=== PATIENT | male | born 1985 | race Caucasian/White ===

== ENCOUNTER 2016-07-26 19:59 | Emergency (ER) | payer MEDICAID ==
[~2016-07-26] VITALS: Ht 180.3 cm; Wt 63.5 kg
[~2016-07-26 19:59] MED LIST: BACT800T5 PO; CEPH500C3 PO; CHLO.12%30 SWISH-SPIT; LACT PO
[2016-07-26 20:00] VITALS: BP 126/74; PULSE 68; RESP 18; TEMP 97.8; O2SAT 99
[2016-07-26] MEDS ORDERED: PENI250T59 PO (20:17)
--- NOTE | 2016-07-26 20:40 | PD ---
HPI Chief Complaint: Oral / Dental Pain or Problem Time Seen by Provider: 20:37 Travel History International Travel<30 days: No Contact w/Intl Traveler<30days: No Traveled to known affect area: No History of Present Illness HPI 31-year-old white male presents to emergency Department with complaints of dental pain. He states that he is had pain and swelling of the left lower jaw now for the past week. He states that he's been taking leftover penicillin that he had from prior dental infection and ibuprofen without relief. He states the pain is becoming more severe. It radiates to his right ear. He has difficulty opening closing his jaw. He denies any fever or chills. No nausea vomiting. No abdominal pain or urinary symptoms. PFSH Past Medical History Narrative Medical Asthma, dental cavities Asthma: Yes (child) Diminished Hearing: No Tetanus Vaccination: < 5 Years Past Surgical History Oral Surgery: Yes (4 dental implants) Social History Alcohol Use: Yes Tobacco Use: Yes (04/15-2PPD) Substance Use: No Allergies-Medications (Allergen,Severity, Reaction): Coded Allergies: No Known Allergies (Unverified , 07/26/16) Reported Meds & Prescriptions Reported Meds & Active Scripts Active Reported Penicillin Vk (Penicillin V Potassium) 250 Mg Tab 500 Mg PO Q6H Review of Systems Except as stated in HPI: all other systems reviewed are Neg Physical Exam Narrative GENERAL: Well-developed, well-nourished in no acute distress. Nontoxic appearing. HEAD: Normocephalic, atraumatic. EYES: Pupils equal round and reactive. Extraocular motions intact. No scleral icterus. No injection or drainage. ENT: TMs clear without erythema. The external auditory canals clear. Nose: clear . Posterior pharynx is pink and moist. No tonsillar edema or exudate. Uvula midline. Airway patent. The patient has diffuse periodontal disease. He has multiple dental cavities. He points to his left lower mandible as a source of his pain. His lower last 2 molars are decayed to the gumline. There is gingival edema and erythema. NECK: Trachea midline.Supple, nontender, moves head freely. No central bony tenderness or spasm. CARDIOVASCULAR: Regular rate and rhythm without murmurs, gallops, or rubs. RESPIRATORY: Clear to auscultation. Breath sounds equal bilaterally. No wheezes , rales, or rhonchi. GASTROINTESTINAL: Abdomen soft, non-tender, nondistended. No hepato-splenomegaly , or palpable masses. No guarding. EXTREMITIES: No clubbing, cyanosis, or edema. No joint tenderness, effusion, or edema noted. BACK: Nontender without deformity or crepitance. No flank tenderness. Data Data Last Documented VS Vital Signs Date Time Temp Pulse Resp B/P Pulse Ox O2 Delivery O2 Flow Rate FiO2 07/26/16 20:00 97.8 68 18 126/74 99 Room Air MDM Medical Decision Making Medical Screen Exam Complete: Yes Emergency Medical Condition: Yes Medical Record Reviewed: Yes Differential Diagnosis MDM: Moderate Differential diagnoses: Dental abscess, dental caries, osteitis, cellulitis Narrative Course This is dental caries, dental abscess Patient given clindamycin 600 milligrams by mouth, Lortab 5 mg by mouth. Diagnosis Primary Impression: Dental abscess Additional Impression: Dental caries Patient Instructions: Narcotic given in the ED, General Instructions Additional Instructions: Rest. Saltwater gargles. [place] oil on cotton balls. 3 Advil every 6 hours. Clindamycin and Ultram. follow-up with a dentist as soon as possible. And return to the ER if any problems. Med/Other Pt SpecificInfo: Prescription(s) given Disposition: 01 DISCHARGE HOME Condition: Stable Sanjeev Agarwal Jul 26, 2016 20:40
[2016-07-26] MEDS ORDERED: CLIN150 PO (20:42)
[2016-07-26] MEDS ORDERED: ULTR50TA5 PO (20:42)
[2016-07-26] MEDS ORDERED: ACETAMINOPHEN/HYDROcodone 325 MG/5 MG TAB PO ONE (20:45)
[2016-07-26] MEDS ORDERED: CLINDAMYCIN 150 MG CAP PO ONE (20:45)
== END 2016-07-26 20:53 | disposition home or self-care (01) ==
LOC: NEPB 19:59
DX: K04.7 Periapical abscess without sinus (principal); K02.9 Dental caries, unspecified; F17.200 Nicotine dependence, unspecified, uncomplicated
CPT/HCPCS: 99282

== ENCOUNTER 2016-11-16 09:39 | Emergency (ER) | payer MEDICAID ==
[~2016-11-16] VITALS: Ht 182.9 cm; Wt 62.0 kg
[~2016-11-16 09:39] MED LIST changes: -BACT800T5 PO; -CEPH500C3 PO; -CHLO.12%30 SWISH-SPIT; +CLIN150 PO; -LACT PO; +PENI250T59 PO; +ULTR50TA5 PO
[2016-11-16 09:41] VITALS: BP 133/86; PULSE 68; RESP 15; TEMP 97.9; O2SAT 100
[2016-11-16] MEDS ORDERED: LIDOCAINE VISCOUS 2% SOLN 15 ML UDC SWISH-SWAL ONE (10:00)
[2016-11-16] MEDS ORDERED: ALUMINUM/MAGNESIUM/SIMETH 30 ML CUP PO ONE (10:00)
[2016-11-16] MEDS ORDERED: SODIUM CHLORIDE 0.9% FLUSH 10 ML FLUSH IVF PRN (10:00)
[2016-11-16 10:13] VITALS: O2SAT 98
--- NOTE | 2016-11-16 10:15 | PD ---
HPI Chief Complaint: Cardiac Complaint Time Seen by Provider: 09:48 Travel History International Travel<30 days: No Contact w/Intl Traveler<30days: No Traveled to known affect area: No History of Present Illness HPI This is a 31-year-old male who presents to the emergency department with chest discomfort in the mid sternal area, nonradiating, initially associated with severe palpitations, sweating and shortness of breath that woke him up from sleep in the middle the night. He says he has never had symptoms like this before. His symptoms have been constant but improving some throughout the morning. He does take ibuprofen for chronic back pain. He denies any history of hypertension, hyperlipidemia, or diabetes. He does smoke and he drinks alcohol occasionally. He doesn't use any drugs. He has no family history of heart disease. PFSH Past Medical History Asthma: Yes (child) Diminished Hearing: No Influenza Vaccination: No Past Surgical History Oral Surgery: Yes (4 dental implants) Social History Alcohol Use: Yes ("seldom") Tobacco Use: Yes (04/15-2PPD) Substance Use: No Allergies-Medications (Allergen,Severity, Reaction): Coded Allergies: No Known Allergies (Unverified , 11/16/16) Reported Meds & Prescriptions Reported Meds & Active Scripts Active No Active Prescriptions or Reported Medications Review of Systems Except as stated in HPI: all other systems reviewed are Neg Physical Exam Narrative GENERAL:Well appearing, no acute distress SKIN: Focused skin assessment warm and dry. HEAD: Atraumatic. Normocephalic. EYES: Pupils equal and round. No injection or drainage. ENT: Moist mucous membranes NECK: Trachea midline. CARDIOVASCULAR: Regular rate and rhythm. No murmur appreciated. RESPIRATORY: Clear to auscultation. Breath sounds equal bilaterally. GASTROINTESTINAL: Abdomen soft, non-tender, nondistended. MUSCULOSKELETAL: No obvious deformities. NEUROLOGICAL: Awake and alert. No obvious cranial nerve deficits. Moving all extremities. PSYCHIATRIC: Appropriate mood and affect; insight and judgment normal. Data Data Last Documented VS Vital Signs Date Time Temp Pulse Resp B/P Pulse Ox O2 Delivery O2 Flow Rate FiO2 11/16/16 10:13 98 Room Air 11/16/16 09:41 97.9 68 15 133/86 Orders Electrocardiogram (11/16/16 09:54) Complete Blood Count With Diff (11/16/16 09:54) Comprehensive Metabolic Panel (11/16/16 09:54) Troponin I (11/16/16 09:54) Lipase (11/16/16 09:54) Chest, Single Ap (11/16/16 09:54) Ecg Monitoring (11/16/16 09:54) Bilateral Bp Monitoring (11/16/16 09:54) Iv Access Insert/Monitor (11/16/16 09:54) Oximetry (11/16/16 09:54) Oxygen Administration (11/16/16 09:54) Sodium Chloride 0.9% Flush (Ns Flush) (11/16/16 10:00) Al-Mag Hy-Si 40-40-4 Mg/Ml Liq (Mag-Al P (11/16/16 10:00) Lidocaine 2% Viscous (Xylocaine 2% Visco (11/16/16 10:00) Labs Laboratory Tests Test 11/16/16 10:02 White Blood Count 8.1 TH/MM3 Red Blood Count 4.81 MIL/MM3 Hemoglobin 14.7 GM/DL Hematocrit 43.1 % Mean Corpuscular Volume 89.6 FL Mean Corpuscular Hemoglobin 30.5 PG Mean Corpuscular Hemoglobin 34.0 % Concent Red Cell Distribution Width 13.6 % Platelet Count 132 TH/MM3 Mean Platelet Volume 10.1 FL Neutrophils (%) (Auto) 66.2 % Lymphocytes (%) (Auto) 26.7 % Monocytes (%) (Auto) 5.5 % Eosinophils (%) (Auto) 0.9 % Basophils (%) (Auto) 0.7 % Neutrophils # (Auto) 5.4 TH/MM3 Lymphocytes # (Auto) 2.2 TH/MM3 Monocytes # (Auto) 0.4 TH/MM3 Eosinophils # (Auto) 0.1 TH/MM3 Basophils # (Auto) 0.1 TH/MM3 CBC Comment DIFF FINAL Differential Comment Sodium Level 137 MEQ/L Potassium Level 3.7 MEQ/L Chloride Level 106 MEQ/L Carbon Dioxide Level 22.9 MEQ/L Anion Gap 8 MEQ/L Blood Urea Nitrogen 11 MG/DL Creatinine 0.96 MG/DL Estimat Glomerular Filtration 92 ML/MIN Rate Random Glucose 187 MG/DL Calcium Level 8.3 MG/DL Total Bilirubin 0.8 MG/DL Aspartate Amino Transf 22 U/L (AST/SGOT) Alanine Aminotransferase 21 U/L (ALT/SGPT) Alkaline Phosphatase 71 U/L Troponin I LESS THAN 0.02 NG/ML Total Protein 7.1 GM/DL Albumin 3.9 GM/DL Lipase 538 U/L MDM Medical Decision Making Medical Screen Exam Complete: Yes Emergency Medical Condition: Yes Interpretation(s) Afebrile, no tachycardia, normotensive No leukocytosis Troponin is normal Lipase is 538 EKG: Normal sinus rhythm, incomplete right bundle-branch block, pronounced T waves in V3 and V4 Last 24 hours Impressions Chest X-Ray 11/16/16 0920 Signed Impressions: Service Date/Time: Wednesday, November 16, 2016 09:56 - CONCLUSION: No acute disease. Juma Wilkinson MD FACR Differential Diagnosis Acute coronary syndrome, aortic dissection, gastritis, peptic ulcer disease, pancreatitis, arrhythmia Narrative Course This is a 31-year-old male who presents to the emergency department with chest discomfort that started this morning waking him from sleep associated with some shortness of breath. He says he woke up around 2 AM with the pain. He is tender in his epigastrium suggestive of gastritis or peptic ulcer disease. Labs were obtained which demonstrate a lipase in the 500s which doesn't meet criteria for pancreatitis but does support a GI etiology of his symptoms. Symptoms started 9 hours prior to arrival and have been constant so I think this is reassuring that this doesn't reflect ACS. He has a little bit of an unusual body habitus so I considered aortic dissection but his symptoms would be very atypical, and his chest x-rays reassuring. His EKG is a little abnormal also with a right ventricular conduction delay. I considered Brugada syndrome but the takeoff of R prime does not meet 2 mm. He also may have some preexcitation in the inferior leads but this doesn't persist throughout the entire EKG. I think he's safe to follow-up with his primary care physician and possibly an outpatient sql server architect. Diagnosis Primary Impression: Chest pain Qualified Code: R07.9 - Chest pain, unspecified type Patient Instructions: General Instructions Additional Instructions: If you develop severe chest pain, shortness of breath, sweating, lightheadedness , dizziness or difficulty breathing return to the emergency department immediately. Followup with your primary care physician in one week to have your blood work redrawn. Follow up with a sql server architect regarding your EKG. Med/Other Pt SpecificInfo: No Change to Meds Scripts No Active Prescriptions or Reported Meds Disposition: 01 DISCHARGE HOME Condition: Stable Heidy Baxter MD Nov 16, 2016 10:15
--- NOTE | 2016-11-16 10:22 | RADRPT ---
EXAM DATE/TIME: 11/16/2016 09:56 [facility] COMPARISON: No previous studies available for comparison. INDICATIONS : Chest pain today. MEDICAL HISTORY : None. SURGICAL HISTORY : None. ENCOUNTER: Initial ACUITY: 1 day PAIN SCORE: 7/10 LOCATION: Bilateral chest FINDINGS: A single view of the chest demonstrates the lungs to be symmetrically aerated without evidence of mas s, infiltrate or effusion. The cardiomediastinal contours are unremarkable. Osseous structures are intact. CONCLUSION: No acute disease. Juma Wilkinson MD FACR on November 16, 2016 at 10:20 Board Certified Radiologist. This report was verified electronically.
[2016-11-16 10:48] LABS: AUTOMATED NEUTROPHIL # 5.4 TH/MM3 (1.8-7.7); BASOPHIL # 0.1 TH/MM3 (0-0.2); BASOPHIL % 0.7 % (0.0-2.0); EOSINOPHIL # 0.1 TH/MM3 (0-0.4); EOSINOPHIL % 0.9 % (0.0-4.0); HEMATOCRIT 43.1 % (39.0-51.0); HEMO FLAGS DIFF FINAL; LYMPH % 26.7 % (9.0-44.0); LYMPHOCYTE # 2.2 TH/MM3 (1.0-4.8); MEAN CELL VOLUME 89.6 FL (80.0-100.0); MEAN CORPUSCULAR HEMOGLOBIN 30.5 PG (27.0-34.0); MONO % 5.5 % (0.0-8.0); NEUT % 66.2 % (16.0-70.0); PLATELET COUNT 132 TH/MM3 (150-450); RED BLOOD COUNT 4.81 MIL/MM3 (4.50-5.90); RED CELL DISTRIBUTION WIDTH 13.6 % (11.6-17.2); WHITE BLOOD COUNT 8.1 TH/MM3 (4.0-11.0)
[2016-11-16 11:06] LABS: ALT (GPT) 21 U/L (12-78); ANION GAP 8 MEQ/L (5-15); AST (GOT) 22 U/L (15-37); BICARBONATE 22.9 MEQ/L (21.0-32.0); BLOOD UREA NITROGEN 11 MG/DL (7-18); CHLORIDE 106 MEQ/L (98-107); GLOMERULAR FILTRATION RATE 92 ML/MIN (>89); POTASSIUM 3.7 MEQ/L (3.5-5.1); SODIUM (NA) 137 MEQ/L (136-145)
[2016-11-16 11:10] LABS: ALKALINE PHOSPHATASE 71 U/L (45-117); TOTAL BILIRUBIN ADULT 0.8 MG/DL (0.2-1.0)
[2016-11-16] MEDS ORDERED: ZANT150T2 PO (11:29)
--- NOTE | 2016-11-17 21:56 | EKG ---
Date Performed: 11/16/2016 Time Performed: 10:02:59 PTAGE: 31 years EKG: SINUS BRADYCARDIA POSSIBLE RIGHT VENTRICULAR CONDUCTION DELAY Since previous tracing, no si gnificant change noted BORDERLINE ECG PREVIOUS TRACING : 07/23/2014 08.36 DOCTOR: Kb Davalos Interpretating Date/Time 11/17/2016 21:54:41
== END 2016-11-16 12:01 | disposition home or self-care (01) ==
LOC: NEPD 09:39
DX: R07.89 Other chest pain (principal); R06.02 Shortness of breath; F17.200 Nicotine dependence, unspecified, uncomplicated
CPT/HCPCS: 71010; 80053; 83690; 84484; 85025; 93005; 99285